=== PATIENT | male | born 1995 | race Caucasian/White ===

== ENCOUNTER 2017-05-31 00:04 | Emergency (ER) | payer BC ==
[~2017-05-31] VITALS: Ht 190.5 cm; Wt 78.7 kg
[2017-05-31 00:07] VITALS: BP 131/75; PULSE 119; TEMP 36.2; O2SAT 100; Ht 190.5 cm; Wt 78.7 kg
[2017-05-31] MEDS ORDERED: LIDOCAINE/EPINEPH/TETRACAINE 1 EA SYR EXT STA (00:19)
[2017-05-31] MEDS ORDERED: LIDOCAINE 1% BUFFERED INJ 20 ML VIAL INFIL ONE (00:30)
[2017-05-31] MEDS ORDERED: ACETAMINOPHEN 500 MG TAB PO STA (01:10)
[2017-05-31] MEDS ORDERED: ACETAMINOPHEN 500 MG TAB PO ONE (01:12)
--- NOTE | 2017-05-31 01:32 | EMERGENCY ROOM VISIT NOTE ---
History First contact with patient: 00:11 Chief Complaint: LACERATION/CUT (SUT/DERMABOND) Stated Complaint: LACERATION TO CHIN Nursing Triage Summary: Patient was ice skating, fell forward and hit his chin. Patient has laceration to right side of chin. No LOC History of Present Illness The patient is a 22 year old male who presents to the Emergency Room with complaints of a laceration to his chin. The patient reports he was ice-skating and fell, striking his chin off the ice. He reports a laceration to the right side of the chin. There was no loss of consciousness. He reports pain in the area of the laceration rated a 4/10. He denies any head pain, nausea/vomiting, confusion, blurred vision or slurred speech. His tetanus is up-to-date. Review of Systems A 6 point review of systems was reviewed with the patient with pertinent positives and negatives as per history of present illness. All else were negative. Past Medical/Surgical History Medical Problems: (1) No significant medical problems Surgical Problems: (1) No significant past surgical history Social History Smoking Status: Never Smoker Alcohol Use: none Marital Status: single Housing Status: lives with family Occupation Status: student Current/Historical Medications No Active Prescriptions or Reported Meds Physical Exam Vital Signs Date Time Temp Pulse Resp B/P (MAP) Pulse Ox O2 Delivery O2 Flow Rate FiO2 05/31/17 00:07 36.2 119 18 131/75 100 Room Air Physical Exam VITALS: Vitals are noted on the nurse's note and reviewed by myself. Vital signs stable. GENERAL: This is a 22-year-old male, in no acute distress, nondiaphoretic, well- developed well-nourished. SKIN: There is a 3 cm gaping laceration to the right side of the chin. There is no active bleeding. Subcutaneous tissue is exposed. HEENT: Normocephalic. PERRLA. EOMI. Nares patent. Mucous membranes moist. Neck is supple without nuchal rigidity. HEART: Regular rate and rhythm without murmurs gallops or rubs. LUNGS: Clear to auscultation bilaterally without wheezes, rales or rhonchi. NEURO: Patient was alert and oriented to person place and time. Medical Decision & Procedures Medications Administered Medications (Trade) Dose Ordered Sig/Gissel Route Start Time Stop Time Status Last Admin Dose Admin Tetracaine/ Epinephrine/ Lidocaine (L.e.t. Gel 4%/ 1:100/0.5%) 1 ea UD STAT EXT 05/31/17 00:19 05/31/17 00:21 DC 05/31/17 00:19 1 EA Acetaminophen (Tylenol Tab) 1,000 mg NOW STAT PO 05/31/17 01:10 05/31/17 01:12 DC 05/31/17 01:10 1,000 MG Procedure Verbal consent was obtained to perform the procedure. LET gel was applied to the wound and left in place for greater than 30 minutes. Using sterile technique the wound was cleaned with Betadine. The area was sterilely draped. Once the patient was anesthetized, the wound was copiously irrigated under pressure with sterile saline. The wound was explored and there were no deep structures injured. The laceration was repaired using 6 simple interrupted 6-0 nylon sutures with the wound edges being well approximated. The patient tolerated the procedure well. Hemostasis was achieved. The area was cleaned with sterile saline and dressed with bacitracin ointment and bandage. Medical Decision The patient was evaluated as above. Laceration repair was performed as noted in the procedure section. Patient was given 1 g Tylenol for pain. He tolerated the procedure well. Suture care instructions were discussed with the patient and mother. They verbalized understanding of my assessment and treatment plan and the patient was discharged home in good condition. Head Trauma GCS Score: 15 Medication Reconcilliation Current Medication List: was personally reviewed by me Blood Pressure Screening Patient's blood pressure: Normal blood pressure Impression Primary Impression: Facial laceration Departure Information Dispostion Home / Self-Care Condition GOOD Prescriptions No Active Prescriptions or Reported Meds Referrals Maggie Enamorado M.D. (PCP) Patient Instructions My [facility] Additional Instructions You have received 6 sutures on your Chin. These sutures are NOT dissolvable and WILL need to be removed by a health care provider in 5-7 days. You can return to the Emergency Department or contact your Primary Care Provider to have the sutures removed. Proper wound care is essential for adequate wound healing and infection prevention. You can shower and clean the wound with soap and water. Do not scour over the wound, pat dry with a towel. Do not submerse the wound (i.e. bathe or dish wash) until the sutures have been removed. You can use an antibiotic ointment with a dressing over the wound for the next 3-4 days. After this time you may leave the wound dry and open to the air. If crust develops over the wound you can use a Q-tip to apply a 1:1 peroxide:water solution to clean the wound. Look for signs of infection of the wound including: increased pain, swelling, foul discharge, streaking, or increased temperature. If any of these are noticed you should return to the Emergency Department for further assessment and treatment. As with any laceration you may have received nerve damage to the surrounding tissues. This damage may or may not be permanent. You should keep the area covered with sunscreen for the first 6 months to 1 year when at risk for exposure to help minimize scarring. You can also use scar reducing creams or Vitamin E oil to help minimize scarring. For pain control, you can use the following [id number] medicines (if >12 yo): - Regular strength (325mg/tab) Tylenol (acetaminophen) 2 tabs every 4-6 hours as needed. Do not exceed 12 tablets in a 24 hour period. Avoid taking more than 4 grams (4000 mg) of Tylenol per day. This includes any other sources of acetaminophen you may take on a regular basis. - Regular strength (200 mg/tab) Advil (ibuprofen) 1-2 tabs every 4-6 hours as needed. Do not exceed a dose of 3200 mg per day. Return to the emergency department if your symptoms worsen despite treatment course outlined above. Problem Qualifiers Primary Impression: Facial laceration Encounter type: initial encounter Qualified Codes: S01.81XA - Laceration without foreign body of other part of head, initial encounter
== END 2017-05-31 01:48 | disposition home or self-care (01) ==
LOC: C.EDB 00:05
DX: S01.81XA Laceration without foreign body of other part of head, initial encounter (principal); W19.XXXA Unspecified fall, initial encounter